=== PATIENT | female | born 1975 | race Caucasian/White ===

== ENCOUNTER 2018-11-26 14:43 | Emergency (ER) | payer OTHER ==
[~2018-11-26] VITALS: Ht 172.7 cm; Wt 95.5 kg
[2018-11-26] MEDS ORDERED: SYNTHROID175 MCG PO (14:55)
[2018-11-26 15:22] LABS: EOS # 0.1 (0.04-0.40); EOS % 0.8 % (1.0-5.0); HEMATOCRIT 35.2 % (37.0-47.0); HEMOGLOBIN 11.6 g/dL (12.5-16.0); LYMPH# 1.9 (1.50-4.00); MEAN CELL VOLUME 89 fl (78-100); MEAN CORPUSCULAR HEMOGLOBIN 29 pg (27-31); MEAN CORPUSCULAR HGB CONC 33 g/dL (33-37); MEAN PLATELET VOLUME 9.3 fl (7.4-10.4); MONO # 1.2 (0.20-0.80); NEU # 6.6 (1.40-6.50); PLATELET COUNT 290 K/mm3 (130-400); RED BLOOD COUNT 3.95 M/mm3 (4.10-5.30); RED CELL DISTRIBUTION WIDTH 13.7 % (11.5-14.5); WHITE BLOOD COUNT 9.8 K/mm3 (4.8-10.8)
[2018-11-26 15:33] LABS: ALBUMIN 3.6 g/dL (3.5-5.0); POTASSIUM 3.7 mmol/L (3.5-5.1)
[2018-11-26 15:34] LABS: CALCIUM 7.6 mg/dL (8.3-10.5)
[2018-11-26 15:35] LABS: TOTAL PROTEIN 6.9 g/dL (6.4-8.3)
[2018-11-26 15:37] LABS: TOTAL BILIRUBIN 0.2 mg/dL (0.2-1.2)
[2018-11-26 18:04] LABS: PH-URINE 6.5 (5.0 - 8.0); URINE APPEARANCE HAZY; URINE COLOR YELLOW; URINE PROTEIN(semi-quant) TRACE mg/dL (NEGATIVE)
[2018-11-26 18:05] LABS: URINE BILIRUBIN NEGATIVE (NEGATIVE); URINE BLOOD TRACE (NEGATIVE); URINE GLUCOSE NEGATIVE (NEGATIVE); URINE KETONE NEGATIVE (NEGATIVE); URINE LEUKOCYTE ESTERASE 1+ (NEGATIVE); URINE NITRATE POSITIVE (NEGATIVE); URINE UROBILINOGEN NORMAL (NORMAL); URINE WBC 16-30 /hpf (0-3)
[2018-11-26] MEDS ORDERED: SEPTRA DS 8001 TAB PO (18:27)
[2018-11-26 18:37] VITALS: BP 125/65
== END 2018-11-26 18:37 | disposition home or self-care (01) ==
LOC: ED 14:43
PROVIDERS: Nurse Practitioner Primary Care
DX: N12 Tubulo-interstitial nephritis, not specified as acute or chronic (principal); E89.0 Postprocedural hypothyroidism
CPT/HCPCS: A4216; J0696; J2270; J2405; Q9967